=== PATIENT | female | born 1980 | race Caucasian/White ===

== ENCOUNTER 2016-11-19 19:06 | Emergency (ER) | payer SELFPAY ==
[2016-11-19] MEDS ORDERED: DOXYCYCLINE HYCLATE 100 MG TABLET ONE (20:03)
== END 2016-11-19 20:13 | disposition home or self-care (01) ==
LOC: ED 19:06
DX: R21 Rash and other nonspecific skin eruption (principal)
CPT/HCPCS: 99281; 99283; A9270